=== PATIENT | female | born 1935 | race Caucasian/White ===

== ENCOUNTER 2017-02-03 22:47 | Emergency (ER) | payer MEDICARE, OTHER ==
[~2017-02-03 22:47] MED LIST: TYLENOL500 MG PO; ULTRAM50 MG PO
[2017-02-04] MEDS ORDERED: ARICEPT10 MG PO (01:28)
[2017-02-04] MEDS ORDERED: MELATIN3 MG PO (01:29)
[2017-02-04] MEDS ORDERED: NAMENDA10 MG PO (01:29)
[2017-02-04] MEDS ORDERED: REMERON15 M2 PO (01:30)
== END 2017-02-04 01:00 | disposition short-term general hospital (02) ==
LOC: ER 22:47
DX: R10.9 Unspecified abdominal pain (principal); F03.90 Unspecified dementia, unspecified severity, without behavioral disturbance, psychotic disturbance, mood disturbance, and anxiety; Z88.1 Allergy status to other antibiotic agents; F41.9 Anxiety disorder, unspecified; Z87.440 Personal history of urinary (tract) infections; Z98.890 Other specified postprocedural states

== ENCOUNTER 2017-02-26 16:49 | Emergency (ER) | payer MEDICARE, OTHER ==
[~2017-02-26 16:49] MED LIST changes: +ARICEPT10 MG PO; +MELATIN3 MG PO; +NAMENDA10 MG PO; +REMERON15 M2 PO
[2017-02-26] MEDS ORDERED: COZAAR100 MG PO (17:02)
== END 2017-02-26 18:40 | disposition short-term general hospital (02) ==
LOC: ER 16:49
DX: I10 Essential (primary) hypertension (principal); F03.90 Unspecified dementia, unspecified severity, without behavioral disturbance, psychotic disturbance, mood disturbance, and anxiety; Z79.899 Other long term (current) drug therapy